=== PATIENT | male | born 1985 | race Caucasian/White ===

== ENCOUNTER 2018-07-05 17:38 | Emergency (ER) | payer OTHER ==
[~2018-07-05] VITALS: Ht 190.5 cm; Wt 108.4 kg
--- NOTE | 2018-07-05 17:42 | ED.ADGEN ---
Past History Past Medical History: Migraines Adult General Chief Complaint Chief Complaint ".. I have hypothyroid.. and I got a new Rx.. but did not know about it until today... it will be saturday before I get it filled... 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 Patient states normal presentation of his migraine headaches. Has had multiple workups for his migraine headaches. Prior MRIs of head have been normal. No history of recent trauma. No history of specific ill contacts. No history of overseas travel. Patient denies any specific ill contacts. Patient does have a history of hypothyroidism. Patient recently given a prescription increase his thyroid meds, but was unable to get it filled this weekend. Patient is concerned that this may have caused his migraine. Review of Systems Review of Systems Constitutional: Denies fever or chills [] Eyes: Denies change in visual acuity, redness, or eye pain [] HENT: Denies nasal congestion or sore throat [] Respiratory: Denies cough or shortness of breath [] Cardiovascular: No additional information not addressed in HPI [] GI: Denies abdominal pain, nausea, vomiting, bloody stools or diarrhea [] : Denies dysuria or hematuria [] Musculoskeletal: Denies back pain or joint pain [] Integument: Denies rash or skin lesions [] Neurologic: Complaints of headache, denies focal weakness or sensory changes [] Endocrine: Denies polyuria or polydipsia [] All other systems were reviewed and found to be within normal limits, except as documented in this note. Family History Family History Noncontributory Current Medications Current Medications Current Medications Medications (Trade) Dose Ordered Sig/Genesis Start Time Stop Time Status Last Admin Dose Admin Ketorolac Tromethamine (Toradol 30mg Vial) 30 mg 1X ONCE 07/05/18 18:15 07/05/18 18:16 DC 07/05/18 19:06 30 MG Lactated Ringer's 1,000 ml @ 1,000 mls/hr 1X ONCE 07/05/18 18:15 07/05/18 19:14 DC 07/05/18 19:05 1,000 MLS/HR Ondansetron HCl (Zofran) 8 mg 1X ONCE 07/05/18 18:15 07/05/18 18:16 DC 07/05/18 19:06 8 MG Sodium Chloride 50 ml @ As Directed STK-MED ONCE 07/05/18 19:15 07/05/18 19:16 DC Valproic Acid (Depacon) 500 mg STK-MED ONCE 07/05/18 19:15 07/05/18 19:16 DC Valproic Acid 500 mg/Sodium Chloride 55 ml @ 250 mls/hr STAT ONCE 07/05/18 18:15 07/05/18 18:28 DC 07/05/18 19:19 250 MLS/HR See nursing for home meds Allergies Allergies Allergies Coded Allergies Type Severity Reaction Last Updated Verified No Known Drug Allergies 07/05/18 No Physical Exam Physical Exam Constitutional: Well developed, well nourished, no acute distress, non-toxic appearance. [] HENT: Normocephalic, atraumatic, bilateral external ears normal, oropharynx moist, no oral exudates, nose normal. [] Eyes: PERRLA, EOMI, conjunctiva normal, no discharge. [] Neck: Normal range of motion, no tenderness, supple, no stridor. [] Cardiovascular:Heart rate regular rhythm, no murmur [] Lungs & Thorax: Bilateral breath sounds clear to auscultation [] Abdomen: Bowel sounds normal, soft, no tenderness, no masses, no pulsatile masses. [] Skin: Warm, dry, no erythema, no rash. [] Back: No tenderness, no CVA tenderness. [] Extremities: No tenderness, no cyanosis, no clubbing, ROM intact, no edema. [] Neurologic: Alert and oriented X 3, normal motor function, normal sensory function, no focal deficits noted. []DTRs +2 patella. And brachial. No drift. 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 Psychologic: Affect anxious, judgement normal, mood normal. [] Current Patient Data Vital Signs Vital Signs Date Time Temp Pulse Resp B/P (MAP) Pulse Ox O2 Delivery O2 Flow Rate FiO2 07/05/18 20:23 70 142/89 (106) 97 Room Air 07/05/18 17:38 99.1 16 Lab Results Laboratory Tests Test 07/05/18 18:10 White Blood Count 7.9 x10^3/uL (4.0-11.0) Red Blood Count 5.15 x10^6/uL (4.30-5.70) Hemoglobin 15.5 g/dL (13.0-17.5) Hematocrit 44.3 % (39.0-53.0) Mean Corpuscular Volume 86 fL (79-100) Mean Corpuscular Hemoglobin 30 pg (25-35) Mean Corpuscular Hemoglobin Concent 35 g/dL (31-37) Red Cell Distribution Width 13.6 % (11.5-14.5) Platelet Count 249 x10^3/uL (140-400) Neutrophils (%) (Auto) 58 % (31-73) Lymphocytes (%) (Auto) 30 % (24-48) Monocytes (%) (Auto) 6 % (0-9) Eosinophils (%) (Auto) 5 % (0-3) H Basophils (%) (Auto) 1 % (0-3) Neutrophils # (Auto) 4.6 x10^3uL (1.8-7.7) Lymphocytes # (Auto) 2.4 x10^3/uL (1.0-4.8) Monocytes # (Auto) 0.5 x10^3/uL (0.0-1.1) Eosinophils # (Auto) 0.4 x10^3/uL (0.0-0.7) Basophils # (Auto) 0.1 x10^3/uL (0.0-0.2) Erythrocyte Sedimentation Rate 2 (0-15) Sodium Level 138 mmol/L (136-145) Potassium Level 3.6 mmol/L (3.5-5.1) Chloride Level 103 mmol/L (98-107) Carbon Dioxide Level 29 mmol/L (21-32) Anion Gap 6 (6-14) Blood Urea Nitrogen 13 mg/dL (8-26) Creatinine 1.1 mg/dL (0.7-1.3) Estimated GFR (Cockcroft-Gault) 83.7 Glucose Level 95 mg/dL (70-99) Calcium Level 9.3 mg/dL (8.5-10.1) EKG EKG [] Radiology/Procedures Radiology/Procedures [] Course & Med Decision Making Course & Med Decision Making Pertinent Labs and Imaging studies reviewed. (See chart for details) Follow-up at [facility]. Patient to fill his current scripts on Saturday. Patient take his home migraine medicines as directed. Patient follow-up primary care. Patient return if any concerns. [] Final Impression Final Impression 1. Migraine Headache 2. Hypothyroid-[]TSH reportedly up Dragon Disclaimer Dragon Disclaimer This electronic medical record was generated, in whole or in part, using a voice recognition dictation system. SANCHEZ ARAUJO MD Jul 05, 2018 17:42
[2018-07-05] MEDS ORDERED: KETOROLAC 30 MG/ML VIAL. IV ONE (18:15)
[2018-07-05] MEDS ORDERED: VALPROATE SODIUM 500 MG in IV NORMAL SALINE 50ML 50 ML IV ONE (18:15)
[2018-07-05] MEDS ORDERED: ONDANSETRON PF 4 MG/2 ML VIAL. IV ONE (18:15)
[2018-07-05] MEDS ORDERED: IV RINGERS SOLUTION,LACTATED 1,000 ML IV ONE (18:15)
[2018-07-05 18:37] LABS: BASO # 0.1 x10^3/uL (0.0-0.2); BASO % 1 % (0-3); EOS # 0.4 x10^3/uL (0.0-0.7); EOS % 5 % (0-3); HEMATOCRIT 44.3 % (39.0-53.0); HEMOGLOBIN 15.5 g/dL (13.0-17.5); LYMPH # 2.4 x10^3/uL (1.0-4.8); LYMPH % 30 % (24-48); MEAN CORPUSCULAR HEMOGLOBIN 30 pg (25-35); MEAN CORPUSCULAR HGB CONC 35 g/dL (31-37); MEAN CORPUSCULAR VOLUME 86 fL (79-100); MONO # 0.5 x10^3/uL (0.0-1.1); MONO % 6 % (0-9); NEUT # 4.6 x10^3uL (1.8-7.7); NEUT % 58 % (31-73); PLATELET COUNT 249 x10^3/uL (140-400); RED BLOOD COUNT 5.15 x10^6/uL (4.30-5.70); RED CELL DISTRIBUTION WIDTH 13.6 % (11.5-14.5); WHITE BLOOD COUNT 7.9 x10^3/uL (4.0-11.0)
[2018-07-05 18:38] LABS: CALCIUM 9.3 mg/dL (8.5-10.1); CREATININE 1.1 mg/dL (0.7-1.3); GFR 83.7; POTASSIUM 3.6 mmol/L (3.5-5.1)
[2018-07-05] MEDS ORDERED: IV NORMAL SALINE 50ML 50 ML ONE (19:15)
[2018-07-05] MEDS ORDERED: VALPROATE SODIUM 500 MG/5 ML VIAL IV ONE (19:15)
[2018-07-05 19:40] LABS: SEDIMENTATION RATE 2 (0-15)
[2018-07-05] MEDS ORDERED: ONDA8TAB12 PO (20:04)
[2018-07-05] MEDS ORDERED: HYDR-79 PO (20:04)
[2018-07-05 20:23] VITALS: BP 142/89
== END 2018-07-05 20:20 | disposition home or self-care (01) ==
LOC: EDBD 17:38 → ER 17:38
DX: G43.909 Migraine, unspecified, not intractable, without status migrainosus (principal); E03.9 Hypothyroidism, unspecified
CPT/HCPCS: 36415; 80048; 85025; 85651; 96365; 96375; 99284; J1885; J2405; J3490; J7120

== ENCOUNTER 2020-07-01 20:58 | Emergency (ER) | payer OTHER ==
[~2020-07-01] VITALS: Ht 190.5 cm; Wt 115.7 kg
[~2020-07-01 20:58] MED LIST: HYDR-1179 PO; ONDA8TAB12 PO
--- NOTE | 2020-07-01 21:00 | PHYS DOC ---
Past History Past Medical History: Migraines Past Surgical History: No Surgical History Alcohol Use: Occasionally Drug Use: None General Adult HPI: HPI: ".. I got stung about month ago.. not much of reaction.. but tonight while mowing the yard.. I got hit maybe 5 times.. by the time I got in the shower.. 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 Patient reportedly had stung approximately a month ago and had a localized reaction at the site of sting but tonight he had 5 stings and has developed generalized reaction. Patient has marked erythema at areas of stings and generalized hives erythema. Patient normally follows at [facility]. No previous history of allergic reaction to bee stings or wasp stings. No recent travel outside the [facility]. Patient up-to-date with vaccinations. No specific ill contacts. Review of Systems: Review of Systems: Constitutional: Denies fever or chills Eyes: Denies change in visual acuity HENT: Denies nasal congestion or sore throat Respiratory: Denies cough or shortness of breath Cardiovascular: Denies chest pain or edema GI: Denies abdominal pain, nausea, vomiting, bloody stools or diarrhea : Denies dysuria Musculoskeletal: Denies back pain or joint pain Integument: Complains of insect stings and a rash Neurologic: Denies headache, focal weakness or sensory changes Endocrine: Denies polyuria or polydipsia Lymphatic: Denies swollen glands Psychiatric: Denies depression or anxiety Heart Score: Risk Factors: Risk Factors: DM, Current or recent (<one month) smoker, HTN, HLP, family history of CAD, obesity. Risk Scores: Score 0 - 3: 2.5% MACE over next 6 weeks - Discharge Home Score 4 - 6: 20.3% MACE over next 6 weeks - Admit for Clinical Observation Score 7 - 10: 72.7% MACE over next 6 weeks - Early Invasive Strategies Family History: Family History: Noncontributory Current Medications: Current Meds: See nursing for home meds Allergies: Allergies: Allergies Coded Allergies Type Severity Reaction Last Updated Verified No Known Drug Allergies 07/05/18 No Physical Exam: PE: Constitutional: Well developed, well nourished, moderate acute distress, non- toxic appearance. [] HENT: Normocephalic, atraumatic, bilateral external ears normal, oropharynx moist, no oral exudates, nose normal. [] Eyes: PERRLA, EOMI, conjunctiva normal, no discharge. [] Neck: Normal range of motion, no tenderness, supple, no stridor. [] Cardiovascular:Heart rate regular rhythm, no murmur [] Lungs & Thorax: Bilateral breath sounds equal apex with a few scattered wheezes auscultation [] Abdomen: Bowel sounds normal, soft, no tenderness, no masses, no pulsatile masses. [] Skin: Warm, dry, no erythema, no rash. Multiple insect stings, erythema and hives Back: No tenderness, no CVA tenderness. [] Extremities: No tenderness, no cyanosis, no clubbing, ROM intact, no edema. [] Neurologic: Alert and oriented X 3, normal motor function, normal sensory functi on, no focal deficits noted. [] Psychologic: Affect normal, judgement normal, mood normal. [] EKG: EKG: [] Radiology/Procedures: Radiology/Procedures: [] Course & Med Decision Making: Course & Med Decision Making Pertinent Labs and Imaging studies reviewed. (See chart for details) Patient follow-up with [facility]. Patient take Pepcid 20 mg twice a day. Patient to take Benadryl 50 mg 4 times a day. Patient take prednisone 50 mg a day for the 5 days. Patient to use MDI 2 puffs 4 times a day. Patient to obtain EpiP en. Keep extra meds available. May have developed increased reaction to insect stings. Return if any concerns. Impression: 1. Insect stings allergic reaction [] Dragon Disclaimer: Dragmarifer Disclaimer: This electronic medical record was generated, in whole or in part, using a voice recognition dictation system. Departure Departure: Disposition: 01 HOME/RESIDENCE PRIOR TO ADM Condition: STABLE Referrals: NON,STAFF (PCP) Scripts Prednisone (PREDNISONE) 50 Mg Tablet 50 MG PO DAILY for allergic reaction for 10 Days, #10 TAB Prov: SANCHEZ ARAUJO MD 07/01/20 Epinephrine (EPIPEN 2-STEPHANIE) 0.3 Mg/0.3 Ml Auto.injct 1 SYR IM ONCE for allergic for 1 Day, #1 PACKET 0 Refills Prov: SANCHEZ ARAUJO MD 07/01/20 Famotidine (PEPCID) 20 Mg Tablet 20 MG PO BID for allergic for 30 Days, #60 TAB Prov: SANCHEZ ARAUJO MD 07/01/20 Diphenhydramine Hcl (BENADRYL ALLERGY) 25 Mg Tablet 50 MG PO QID for allergic for 10 Days, #80 TAB Prov: SANCHEZ ARAUJO MD 07/01/20 Justification of Admission: Justification of Admission: Justification of Admission Dx: N/A Dragon Disclaimer This chart was dictated in whole or in part using Voice Recognition software in a busy, high-work load, and often noisy Emergency Department environment. It may contain unintended and wholly unrecognized errors or omissions. Dragon Disclaimer This chart was dictated in whole or in part using Voice Recognition software in a busy, high-work load, and often noisy Emergency Department environment. It may contain unintended and wholly unrecognized errors or omissions. Dragon Disclaimer This chart was dictated in whole or in part using Voice Recognition software in a busy, high-work load, and often noisy Emergency Department environment. It may contain unintended and wholly unrecognized errors or omissions. SANCHEZ ARAUJO MD Jul 01, 2020 21:00
[2020-07-01] MEDS ORDERED: EPIN0.3A4 IM (21:30)
[2020-07-01] MEDS ORDERED: PRED50TA PO (21:30)
[2020-07-01] MEDS ORDERED: DIPH25TA64 PO (21:30)
[2020-07-01] MEDS ORDERED: FAMO-63 PO (21:30)
[2020-07-01 21:43] VITALS: BP 133/78
[2020-07-01] MEDS ORDERED: methylPREDNISolone ACETATE 40 MG/ML VIAL. IM ONE (22:00)
[2020-07-01] MEDS ORDERED: FAMOTIDINE 20 MG/2 ML VIAL IVP ONE (22:00)
[2020-07-01] MEDS ORDERED: ALBUTEROL SULFATE 8GM INHALER. INH ONE (22:00)
[2020-07-01] MEDS ORDERED: diphenhydrAMINE 50 MG/ML VIAL IVP ONE (22:00)
== END 2020-07-01 22:00 | disposition home or self-care (01) ==
LOC: ER 20:58
DX: T63.481A Toxic effect of venom of other arthropod, accidental (unintentional), initial encounter (principal); L29.9 Pruritus, unspecified; G43.909 Migraine, unspecified, not intractable, without status migrainosus; Y92.89 Other specified places as the place of occurrence of the external cause
CPT/HCPCS: 94640; 96372; 96374; 96375; 99284; J1030; J1200; J3490; J7613; 94664